=== PATIENT | female | born 1990 | race African-American/Black ===

== ENCOUNTER 2021-01-20 10:23 | Emergency (ER) | payer SELFPAY ==
[~2021-01-20] VITALS: Ht 160 cm; Wt 89.0 kg
[2021-01-20 10:28] VITALS: BP 142/86
[2021-01-20] MEDS ORDERED: CEPH500T MT (10:53)
== END 2021-01-20 13:11 | disposition home or self-care (01) ==
LOC: ER 10:23
DX: L03.115 Cellulitis of right lower limb (principal); J45.909 Unspecified asthma, uncomplicated
CPT/HCPCS: 99281